=== PATIENT | female | born 1965 | race Two or more races ===

== ENCOUNTER 2025-04-15 20:35 | Emergency (ER) | payer MEDICAID, OTHER ==
[~2025-04-15] VITALS: Ht 162.6 cm; Wt 102.5 kg
--- NOTE | 2025-04-15 20:56 | ECG ---
[facility] Test Date: 2025-04-15 Test Time: 20:54:44 Pat Name: LEYDA RILEY Department: [facility] ED Patient ID: [facility]-[id number] Room: Gender: F Paper Folder: lisa : 1965 Requested By: KENDALL HAGER Order Number: [id number] Reading MD: Don Siddiqui Measurements Intervals [place] Rate: 75 P: 51 WA: 185 QRS: 23 QRSD: 86 T: 23 QT: 363 QTc: 406 Interpretive Statements Sinus rhythm Low voltage, precordial leads Electronically Signed On 04-21-2025 14:46:55 PST by Don Siddiqui Please click the below link to view image of tracing.
--- NOTE | 2025-04-15 21:23 | ED.PDOC ---
History of Present Illness HPI Comments 60 year old female presents to the ED with a chief complaint of back pain onset 1 week. Patient states she has been experiencing RT upper back pain radiates to her neck and shoulder for the past week. This morning, she noticed pain worsened, was also experiencing chest pain and headache. Denies dizziness, n umbness/tingling, fever, chills, cough,cold, congestion, abdominal pain, fall, injury, trauma. No other symptoms or modifying factors present at this time. Chief Complaint: Back Pain Time Seen by MD: 21:15 Reviewed Notes: Medications, Allergies Allergies: Coded Allergies: NSAIDs (Unverified Allergy, Unknown, 04/15/25) Home Meds Active Scripts Cyclobenzaprine Hcl (CYCLOBENZAPRINE HCL) 7.5 Mg Tab, 7.5 MG PO Q6HP PRN, #30 TAB Prov:KENDALL HAGER MD 04/15/25 Gabapentin (Once-Daily) (Gabapentin) 300 Mg Tab, 300 MG PO Q6HP PRN, #60 TAB Prov:KENDALL HAGER MD 04/15/25 Cyclobenzaprine Hcl (CYCLOBENZAPRINE HCL) 7.5 Mg Tab, 7.5 MG PO Q6HP PRN, #30 TAB Prov:KENDALL HAGER MD 04/15/25 Gabapentin (Once-Daily) (Gabapentin) 300 Mg Tab, 300 MG PO Q6HP PRN, #30 TAB Prov:KENDALL HAGER MD 04/15/25 Information Source: Patient, Relative Mode of Arrival: Ambulatory Severity: Moderate Timing: Weeks Duration: Since onset Prehospital treatment: None Past Medical History PAST MEDICAL HISTORY: Denies Surgical History: Denies all surgeries PRACTICAL NURSE History: No Pertinent PRACTICAL NURSE History Family History Family History: Reviewed,noncontributory to illness, No family hx of Cancer, No family hx of DM, No family hx of Heart edie, No family hx of HTN, No family hx ofKidney edie, No family hx of Liver edie, No family hx of Lung edie, No family hx of Stroke Social History Smoker: Non-Smoker Alcohol: Denies ETOH Use Drugs: Denies Drug Use Lives In: Home Constitutional: denies: chills, diaphoresis, fatigue, fever, malaise, sweats, weakness, others EENTM: denies: blurred vision, double vision, ear bleeding, ear discharge, ear drainage, ear pain, ear ringing, eye pain, eye redness, hearing loss, mouth pain, mouth swelling, nasal discharge, nose bleeding, nose congestion, nose pain, photophobia, tearing, throat pain, throat swelling, voice changes, others Respiratory: denies: cough, hemoptysis, orthopnea, SOB at rest, shortness of breath, SOB with excertion, stridor, wheezing, others Cardiovascular: reports: chest pain; denies: dizzy spells, diaphoresis, Dyspnea on exertion, edema, irregular heart beat, left arm pain, lightheadedness, palpitations, PND, syncope, others Gastrointestinal: denies: abdomen distended, abdominal pain, blood streaked bowels, constipated, diarrhea, dysphagia, difficulty swallowing, hematemesis, melena, nausea, poor appetite, poor fluid intake, rectal bleeding, rectal pain, vomiting, others Genitourinary: denies: abnormal vagina bleeding, burning, dyspareunia, dysuria, flank pain, frequency, hematuria, incontinence, pain, , vagina discharge, urgency, others Neurological: reports: headache; denies: dizziness, fainting, left sided numbness, left sided weakness, numbness, paresthesia, pre-existing deficit, right sided numbness, right sided weakness, seizure, speech problems, tingling, tremors, weakness, others Musculoskeletal: reports: back pain, neck pain; denies: gout, joint pain, joint swelling, muscle pain, muscle stiffness, others Integumetry: denies: bruises, change in color, change in hair/nails, dryness, laceration, lesions, lumps, rash, wounds, others Allergic/Immunocompromised: denies: Difficulty Healing, Frequent Infections, Hives, Itching, others Hematologic/Lymphatic: denies: anemia, blood clots, easy bleeding, easy bruising, swollen glands, others Endocrine: denies: excessive hunger, excessive sweating, excessive thirst, excessive urination, flushing, intolerance to cold, intolerance to heat, unexplained weight gain, unexplained weight loss, others Psychiatric: denies: anxiety, bipolar disorder, depression, hopeless, panic disorder, schizophrenia, sleepless, suicidal, others All Other Systems: Reviewed and Negative Physical Exam General Appearance: No Apparent Distress, Normal HEENT: Normal ENT Inspection, Pharynx Normal, TMs Normal Neck: Full Range of Motion, Non-Tender, Normal, Normal Inspection Respiratory: Chest Non-Tender, Lungs Clear, No Accessory Muscle Use, No Respiratory Distress, Normal Breath Sounds Cardiovascular: No Edema, No JVD, No Murmur, No Gallop, Normal Peripheral Pulses, Regular Rate/Rhythm Breast Exam: Deferred Gastrointestinal: No Organomegaly, Non Tender, No Pulsatile Mass, Normal Bowel Sounds, Soft Genitalia: Deferred Pelvic: Deferred Rectal: Deferred Extremities: No calf tenderness, Normal capillary refill, Normal inspection, Normal range of motion, Non-tender, No pedal edema Musculoskeletal : Apperance: Normal Neurologic: Alert, electrical engineer II-XII nml as Tested, No Motor Deficits, Normal Affect, Normal Mood, No Sensory Deficits Cerebellar Function: Normal Reflexes: Normal Skin: Dry, Normal Color, Warm Lymphatic: No Adenopathy Was a procedure done? Was a procedure done?: No EKG EKG : Pulse Rate (adult): 75 Cardiac Rhythm: NSR Differential Dx Considerations may include: DDX: coronary ischemia, aortic dissection, pneumothorax, infiltrate/pneumonia, pulmonary embolus and others X-Ray, Labs, Meds, VS Vital Signs Date Time Temp Pulse Resp B/P (MAP) Pulse Ox O2 Delivery O2 Flow Rate FiO2 04/15/25 23:32 95 Room Air* 0 21 04/15/25 22:57 98.4 77 18 131/77 (95) 99 98.4 04/15/25 21:23 75 04/15/25 20:54 75 04/15/25 20:43 98.6 86 18 170/87 96 98.6 Lab Test 04/15/25 21:53 04/15/25 21:00 Range/Units Troponin I High Sensitivity < 3 L < 3 L </=34 ng/L White Blood Count 11.6 H 4.4-10.8 10^3/uL Red Blood Count 5.00 4.0-5.20 10^6/uL Hemoglobin 14.4 12.2-16.2 g/dL Hematocrit 42.1 36.0-46.0 % Mean Corpuscular Volume 84.3 80.0-100.0 fL Mean Corpuscular Hemoglobin 28.9 28.0-32.0 pg Mean Corpuscular Hemoglobin Concent 34.2 32.0-36.0 g/dL Red Cell Distribution Width 13.4 11.8-14.3 % Platelet Count 274 140-450 10^3/uL Mean Platelet Volume 8.9 6.9-10.8 fL Neutrophils (%) (Auto) 59.4 37.0-80.0 % Lymphocytes (%) (Auto) 31.6 10.0-50.0 % Monocytes (%) (Auto) 7.0 0.0-12.0 % Eosinophils (%) (Auto) 1.7 0.0-7.0 % Basophils (%) (Auto) 0.3 0.0-2.0 % Neutrophils # (Auto) 6.9 1.6-8.6 10 ^3/uL Lymphocytes # (Auto) 3.7 0.4-5.4 10 ^3/uL Monocytes # (Auto) 0.8 0-1.3 10 ^3/uL Eosinophils # (Auto) 0.2 0-0.8 10 ^3/uL Basophils # (Auto) 0 0-0.2 10 ^3/uL Nucleated Red Blood Cells 0.1 % D-Dimer, Quantitative 0.57 H 0.0-0.49 mg/L FEU Sodium Level 142 136-145 mmol/L Potassium Level 4.0 3.5-5.1 mmol/L Chloride Level 106 98-107 mmol/L Carbon Dioxide Level 28 20-31 mmol/L Anion Gap 8 5-15 Blood Urea Nitrogen 13 9-23 mg/dL Creatinine 0.67 0.550-1.02 mg/dL Glomerular Filtration Rate Calc 101 >90 mL/min BUN/Creatinine Ratio 19.4 10.0-20.0 Serum Glucose 84 74-106 mg/dL Calcium Level 9.5 8.7-10.4 mg/dL Total Bilirubin 0.3 0.2-1.0 mg/dL Aspartate Amino Transferase (AST) 21 13-40 U/L Alanine Aminotransferase (ALT) 22 7-40 U/L Alkaline Phosphatase 118 H 46-116 U/L B-Type Natriuretic Peptide 5.26 0-100 pg/mL Total Protein 7.9 5.7-8.2 g/dL Albumin 4.4 3.2-4.8 g/dL [address] [address] Ph: [phone] DIAGNOSTIC IMAGING Diagnostic Imaging Report : [id number] Signed PATIENT: LEYDA RILEY ACCT: [id number] UNIT: [id number] : 1965 LOC: ER ROOM / BED: / AGE / SEX: 60 / F ADM STATUS: REG ER SERVICE 45 ORDERING PHYSICIAN: KENDALL HAGER MD PROCEDURE(s): CXRP - CHEST PORTABLE REASON: back pain chest pain ORDER NUMBER(s): [id number], ACCESSION NUMBER(s): [id number] EXAM: XY CHEST PORTABLE CLINICAL HISTORY: back pain chest pain TECHNIQUE: Single frontal view of the chest WID: COMPARISON: None FINDINGS: Lines and tubes: None Chest: The heart size and pulmonary vasculature is within normal limits. No pleural effusion, pneumothorax, or consolidation. The osseous structures are grossly intact. Multilevel thoracic spondylosis. IMPRESSION: 1. No acute cardiopulmonary abnormality. ATED BY: JOLYNN DUFFY MD DICTATED DATE/TIME: 04/15/252203 SIGNED BY: JOLYNN DUFFY MD SIGNED DATE/TIME: 04/15/252203 CC: Time of 1ST Reevaluation: 21:45 Reevaluation 1ST: Unchanged Patient Education/Counseling: Diagnosis, Treatment, Prognosis Family Education/Counseling: Diagnosis, Treatment, Prognosis SEPSIS Sepsis Screen Date sepsis recognized/suspect: Apr 15, 2025 Time Sepsis recognized/suspect: 2047 Recent Procedure: No On Antibiotic Therapy: No Respiratory Rate >20: No Heart Rate >90: No Temp<36 C (96.8 F) or >38.3 C: No SBP <90 or MAP <65 mmHG: No New Acute Mental Status Change: No Is the patient on CPAP, BIPAP,: No Physician Orders Chest Portable (04/15/25 20:46) Vital Signs Date Time Temp Pulse Resp B/P (MAP) Pulse Ox O2 Delivery O2 Flow Rate FiO2 04/15/25 23:32 95 Room Air* 0 04/15/25 22:57 98.4 77 18 131/77 (95) 99 98.4 04/15/25 21:23 75 04/15/25 20:54 75 04/15/25 20:43 98.6 86 18 170/87 96 98.6 Laboratory Tests Test 04/15/25 21:00 White Blood Count 11.6 10^3/uL (4.4-10.8) H Departure 1 Departure Time of Disposition: 23:40 Impression: Primary Impression: Acute thoracic back pain Disposition: HOME / SELF CARE / HOMELESS Condition: Stable e-Prescriptions Cyclobenzaprine Hcl (CYCLOBENZAPRINE HCL) 7.5 Mg Tab 7.5 MG PO Q6HP PRN, #30 TAB Prov: KENDALL HAGER MD 04/15/25 Gabapentin (Once-Daily) (Gabapentin) 300 Mg Tab 300 MG PO Q6HP PRN, #60 TAB Prov: KENDALL HAGER MD 04/15/25 Cyclobenzaprine Hcl (CYCLOBENZAPRINE HCL) 7.5 Mg Tab 7.5 MG PO Q6HP PRN, #30 TAB Prov: KENDALL HAGER MD 04/15/25 Gabapentin (Once-Daily) (Gabapentin) 300 Mg Tab 300 MG PO Q6HP PRN, #30 TAB Prov: KENDALL HAGER MD 04/15/25 Discharged With: Self Critical Care Note Critical Care Time?: No Stability Stability form required: No Heart Score Heart Score: Heart Score Response (Comments) Value History N/A 0 EKG N/A 0 Age N/A 0 Risk Factors N/A 0 Troponin N/A 0 Total 0 I personally scribed for KENDALL HAGER MD ([email or web address]) on 04/15/25 at 21:23. Electronically submitted by aKthy Rocha ([email or web address]). I personally scribed for KENDALL HAGER MD ([email or web address]) on 04/15/25 at 22:19. Electronically submitted by Kathy Rocha ([email or web address]). KENDALL HAGER MD Apr 15, 2025 21:23
[2025-04-15 21:24] LABS: Hematocrit 42.1 % (36.0-46.0); Hemoglobin 14.4 g/dL (12.2-16.2); Mean Corpuscular Hemoglobin 28.9 pg (28.0-32.0); Mean Corpuscular Volume 84.3 fL (80.0-100.0); Nucleated Red Blood Cells % 0.1 %
[2025-04-15 21:29] LABS: Alanine Aminotransferase 22 U/L (7-40); Albumin 4.4 g/dL (3.2-4.8); Anion Gap 8 (5-15); BUN/Creatinine Ratio 19.4 (10.0-20.0); Blood Urea Nitrogen 13 mg/dL (9-23); Calcium 9.5 mg/dL (8.7-10.4); Carbon Dioxide 28 mmol/L (20-31); Chloride 106 mmol/L (98-107); Glucose 84 mg/dL (74-106); Potassium 4.0 mmol/L (3.5-5.1); Sodium 142 mmol/L (136-145); Total Protein 7.9 g/dL (5.7-8.2)
[2025-04-15 21:30] LABS: Bilirubin, Total 0.3 mg/dL (0.2-1.0)
[2025-04-15 21:39] LABS: Alkaline Phosphatase 118 U/L (46-116)
--- NOTE | 2025-04-15 22:06 | DVH ---
EXAM: XY CHEST PORTABLE CLINICAL HISTORY: back pain chest pain TECHNIQUE: Single frontal view of the chest WID: COMPARISON: None FINDINGS: Lines and tubes: None Chest: The heart size and pulmonary vasculature is within normal limits. No pleural effusion, pneumothorax, or consolidation. The osseous structures are grossly intact. Multilevel thoracic spondylosis. IMPRESSION: 1. No acute cardiopulmonary abnormality.
[2025-04-15 22:57] VITALS: BP 131/77; PULSE 77; RESP 18; TEMP 98.4
[2025-04-15] MEDS ORDERED: GABA300T4 PO (23:13)
[2025-04-15] MEDS ORDERED: CYCL-838 PO (23:13)
[2025-04-15 23:32] VITALS: O2SAT 95
== END 2025-04-15 23:33 | disposition home or self-care (01) ==
LOC: ER 20:35
DX: M54.6 Pain in thoracic spine (principal); R07.89 Other chest pain; R51.9 Headache, unspecified; M54.2 Cervicalgia; Z88.6 Allergy status to analgesic agent; Z79.899 Other long term (current) drug therapy
CPT/HCPCS: 36415; 71045; 80053; 83880; 84484; 85025; 85379; 93005